=== PATIENT | male | born 1960 | race African-American/Black ===

== ENCOUNTER 2020-01-15 15:50 | Emergency (ER) | payer MEDICAID ==
[~2020-01-15] VITALS: Ht 177.8 cm; Wt 88.0 kg
[2020-01-15] MEDS ORDERED: ACETAMINOPHEN 325MG TABLET PO STA (18:31)
[2020-01-15 19:38] LABS: BASOPHILS % 0.6 % (0.0-2.0); HEMATOCRIT. 35.6 % (42.0-52.0); HEMOGLOBIN. 10.8 g/dL (14.0-18.0); MEAN CORPUSCULAR HEMOGLOBIN 22.7 pg (28.0-32.0); MEAN CORPUSCULAR VOLUME 74.8 fL (80.0-94.0); MEAN PLATELET VOLUME 10.3 fl (7.4-10.4); MONOCYTES % 8.9 % (2.0-8.0); NEUTROPHILS % 80.5 % (40.0-76.0); PLATELET 201 x1000/uL (130-400); RED BLOOD CELL COUNT 4.75 mill/uL (4.7-6.1); RED CELL DISTRIBUTION WIDTH 22.5 % (11.6-14.6)
[2020-01-15 19:44] LABS: CHLORIDE 109 mEq/L (98-107)
[2020-01-15 19:51] LABS: PLATELET ESTIMATE NORMAL
[2020-01-15] MEDS ORDERED: AMOXICILLIN/POTASSIUM CLAVULANATE 875/125MG TAB PO ONE (20:30)
[2020-01-15] MEDS ORDERED: AZITHROMYCIN 500 MG TABLET PO ONE (20:30)
[2020-01-15 21:55] VITALS: BP 129/99
== END 2020-01-15 22:07 | disposition home or self-care (01) ==
LOC: ER 15:50
DX: J18.9 Pneumonia, unspecified organism (principal); R00.0 Tachycardia, unspecified; Z20.828 Contact with and (suspected) exposure to other viral communicable diseases; Z87.891 Personal history of nicotine dependence
CPT/HCPCS: 36415; 71045; 80053; 85025; 87635; 93005; 99285